=== PATIENT | female | born 2000 | race Caucasian/White ===

== ENCOUNTER 2024-04-02 09:47 | Outpatient (CLI) | payer BC ==
[2024-04-02 10:53] LABS: HEMOGLOBIN A1C 5.4 % (4.5-6.2)
[2024-04-03 13:15] LABS: CANCER ANTIGEN 125 5.4 U/mL (0.0-38.1); INSULIN 14.6 uIU/mL (2.6-24.9)
== END 2024-04-02 23:59 | disposition home or self-care (01) ==
LOC: LAB 09:47
PROVIDERS: ATTEND Internal Medicine
DX: E11.9 Type 2 diabetes mellitus without complications (principal); Z80.3 Family history of malignant neoplasm of breast; Z80.41 Family history of malignant neoplasm of ovary
CPT/HCPCS: 36415; 82947; 83036; 83525; 86304

== ENCOUNTER 2024-11-27 09:54 | Outpatient (CLI) | payer BC | END 2024-11-27 23:59 | disposition home or self-care (01) | LOC: LAB 09:54 | PROVIDERS: ATTEND Internal Medicine | DX: E11.9 Type 2 diabetes mellitus without complications (principal) | CPT/HCPCS: 36415; 82947; 83525 ==